=== PATIENT | male | born 1930 | race Caucasian/White ===

== ENCOUNTER 2017-10-05 11:16 | Inpatient (IN) | payer MEDICARE, MEDICAID ==
[~2017-10-05] VITALS: Ht 185.4 cm; Wt 78.1 kg
[~2017-10-05 11:16] MED LIST: ALDACTONE 25MG25 M1 PO; AMLOPIDINE; ARTIFICIAL TEAR15 M7 OU; ASPIRIN 81M81 MG/TA2 PO; ASPIRIN E.C. 8181 MG PO; CARDURA4 MG PO; CLARITIN 1010 MG/TAB PO; CRESTOR20 MG PO; CRESTOR40 MG PO; EPA/GLA1 SGL PO; FISH OIL1 POW; FLOMAX 0.40.4 MG/CAP PO; GEMFIBROZIL600 MG PO; GERI-TUSSI100 MG/5 M PO; HYDRALAZINE HC100 MG PO; HYGROTON 2525 MG/TAB PO; HYGROTON25 MG PO; IMDUR 60MG60 MG/TAB PO; IPRATROPIUM BROM3 M1 IH; LASIX 40MG TABL40 MG PO; LEVEMIR100 U/ML SQ; LIPITOR 40MG TA40 MG PO; LISINOPRIL1 POW; LISINOPRIL40 MG PO; LOPID600 MG PO; METOPROLOL TART75 MG PO; MIRALAX PA17 GM/Dose PO; MONODOX100 PO; NORVASC 10MG10 MG PO; NORVASC 5MG5 MG/TAB PO; NOVLOG SQ; PERFOROMIS20 MCG/2 M IH; PREDNISONE10 MG PO; PRINIVIL40 MG PO; PULMICORT R1 MG/2 ML IH; SIMVASTATIN80 MG PO; TYLENOL 325MG325 MG PO; TYLENOL 8 HR PO; ULTRAM 50MG TAB50 MG PO; VITAMIN E1000 U/CAP PO; ZADITOR 5 ML5 ML OP; ZOCOR 80MG80 MG PO
[2017-10-05 12:00] LABS: BASO % 0.3 % (0.0-2.0); GRAN # 1.4 (1.4-6.5); GRAN % 36.2 % (42.2-75.2); LYMPH # 1.8 (1.2-3.4); LYMPH % 45.7 % (20.0-51.0); MEAN CELL VOLUME 96 fl (80.0-100.0); MEAN CORPUSCULAR HEMOGLOBIN 32 pg (27.0-31.0); MEAN CORPUSCULAR HGB CONC 33 g/dl (33.0-37.0); MEAN PLATELET VOLUME 10.2 fl (7.4-10.4); MONO # 0.7 (0.1-0.6); MONO % 16.3 % (1.7-9.3); PLATELET COUNT 155 K/mm3 (130-400); RED BLOOD COUNT 4.06 M/mm3 (4.20-5.60); REDCELL DISTRIBUTION WIDTH-CV 12.8 % (11.5-14.5)
[2017-10-05 12:11] LABS: ALBUMIN 3.6 gm/dL (3.5-5.0); BILIRUBIN,TOTAL 0.7 mg/dL (0.0-1.0); CREATININE, serum 1.76 mg/dL (0.66-1.25); TOTAL PROTEIN 6.5 gm/dL (6.4-8.2)
[2017-10-05 12:12] LABS: POTASSIUM 4.2 mmol/L (3.4-5.0)
[2017-10-05 13:12] LABS: COLLECTION METHOD CLEAN CATCH
[2017-10-05 13:39] LABS: MUCOUS Present /lpf; PH 5 (5-8); SQUAMOUS EPITHELIAL 0-2 /hpf; URINE APPEARANCE Clear; URINE BACTERIA None Seen /hpf; URINE BILIRUBIN Negative (NEGATIVE); URINE BLOOD Negative (NEGATIVE); URINE COLOR Yellow; URINE GLUCOSE Negative (NEGATIVE); URINE KETONE Negative (NEGATIVE); URINE LEUKOCYTE ESTERASE Negative (NEGATIVE); URINE NITRATE Negative (NEGATIVE); URINE PROTEIN(semi-quant) Negative (NEGATIVE); URINE RBC 0-2 /hpf; URINE UROBILINOGEN Negative (NEGATIVE)
[2017-10-05] MEDS ORDERED: LEVAQUIN 750MG750 M1 PO ×2 (14:43)
[2017-10-05] MEDS ORDERED: MEDROL 4MG DOSPA4 MG PO (15:10)
[2017-10-05 17:00] LABS: ARTERIAL BLD GAS O2 SATURATION 88.7 % (92-100); ARTERIAL BLD GAS TCO2 CT 22.8; ARTERIAL BLOOD GAS BASE EXCESS -2.5 (-2-2); ARTERIAL BLOOD GAS HCO3 21.7 meq/L (22-26); ARTERIAL BLOOD GAS PCO2 35.5 mmHg (35-45); ARTERIAL BLOOD GAS PO2 57.1 mmHg (80-100)
[2017-10-05 19:10] VITALS: BP 132/74; PULSE 109; TEMP 97.8
[2017-10-05 20:20] VITALS: BP 153/69; PULSE 97; TEMP 98.6
[2017-10-06] VITALS (7 sets, daily range): BP systolic 105–153; BP diastolic 46–71; PULSE 87–115; TEMP 97.2–98.7
[2017-10-06 07:33] LABS: GRAN # 1.9 (1.4-6.5); GRAN % 80.4 % (42.2-75.2); LYMPH # 0.3 (1.2-3.4); LYMPH % 13.8 % (20.0-51.0); MEAN CELL VOLUME 96 fl (80.0-100.0); MEAN CORPUSCULAR HGB CONC 33 g/dl (33.0-37.0); MEAN PLATELET VOLUME 10.4 fl (7.4-10.4); MONO # 0.1 (0.1-0.6); PLATELET COUNT 147 K/mm3 (130-400); RED BLOOD COUNT 3.69 M/mm3 (4.20-5.60); REDCELL DISTRIBUTION WIDTH-CV 12.7 % (11.5-14.5)
[2017-10-06 07:34] LABS: HEMATOCRIT 35.3 % (42.0-52.0); HEMOGLOBIN 11.5 g/dl (13.5-18.0); MEAN CORPUSCULAR HEMOGLOBIN 31 pg (27.0-31.0)
[2017-10-06 08:01] LABS: CALCIUM 8.4 mg/dL (8.4-10.2); CREATININE, serum 1.39 mg/dL (0.66-1.25); MAGNESIUM 1.8 mg/dL (1.6-2.3); PHOSPHOROUS 3.5 mg/dL (2.5-4.5)
[2017-10-07 06:41] VITALS: BP 122/50; PULSE 83; TEMP 97.9
[2017-10-07 07:02] LABS: BASO % 0.2 % (0.0-2.0); GRAN # 3.7 (1.4-6.5); GRAN % 80.5 % (42.2-75.2); LYMPH # 0.4 (1.2-3.4); LYMPH % 9.3 % (20.0-51.0); MEAN CELL VOLUME 96 fl (80.0-100.0); MEAN CORPUSCULAR HGB CONC 33 g/dl (33.0-37.0); MEAN PLATELET VOLUME 10.2 fl (7.4-10.4); MONO # 0.4 (0.1-0.6); MONO % 8.9 % (1.7-9.3); PLATELET COUNT 156 K/mm3 (130-400); RED BLOOD COUNT 3.58 M/mm3 (4.20-5.60); REDCELL DISTRIBUTION WIDTH-CV 12.8 % (11.5-14.5)
[2017-10-07 07:12] LABS: HEMATOCRIT 34.5 % (42.0-52.0); HEMOGLOBIN 11.3 g/dl (13.5-18.0); MEAN CORPUSCULAR HEMOGLOBIN 32 pg (27.0-31.0)
[2017-10-07 07:22] LABS: CALCIUM 8.7 mg/dL (8.4-10.2); CREATININE, serum 1.57 mg/dL (0.66-1.25); PHOSPHOROUS 2.9 mg/dL (2.5-4.5); POTASSIUM 3.7 mmol/L (3.4-5.0)
[2017-10-07 07:52] VITALS: BP 141/62; PULSE 94; TEMP 98.1
[2017-10-07 11:45] VITALS: BP 120/71; PULSE 98; TEMP 97.7
[2017-10-07 16:09] VITALS: BP 111/63; PULSE 116; TEMP 98.6
[2017-10-07 20:17] VITALS: BP 132/65; PULSE 112; TEMP 97.4
[2017-10-08] VITALS (7 sets, daily range): BP systolic 109–142; BP diastolic 58–69; PULSE 65–109; TEMP 97.2–98.1
[2017-10-08 07:23] LABS: HEMATOCRIT 33.9 % (42.0-52.0); HEMOGLOBIN 11.2 g/dl (13.5-18.0); MEAN CELL VOLUME 98 fl (80.0-100.0); MEAN CORPUSCULAR HEMOGLOBIN 32 pg (27.0-31.0); MEAN CORPUSCULAR HGB CONC 33 g/dl (33.0-37.0); MEAN PLATELET VOLUME 10.5 fl (7.4-10.4); PLATELET COUNT 160 K/mm3 (130-400); RED BLOOD COUNT 3.47 M/mm3 (4.20-5.60); REDCELL DISTRIBUTION WIDTH-CV 13.1 % (11.5-14.5)
[2017-10-08 07:44] LABS: CALCIUM 8.8 mg/dL (8.4-10.2); CREATININE, serum 1.64 mg/dL (0.66-1.25); PHOSPHOROUS 3.3 mg/dL (2.5-4.5); POTASSIUM 4.1 mmol/L (3.4-5.0)
[2017-10-08 08:18] LABS: BAND 13 % (0-10); LYMPHOCYTE 14 % (20.0-51.0); METAMYELOCYTE 1 % (0-0); MYELOCYTE 1 % (0-0); NEUTROPHILS 65 % (42.0-75.2); PLATELET ESTIMATE NORMAL (NORMAL)
[2017-10-08 08:19] LABS: POLYCHROMASIA 1+; TOXIC GRANULATION PRESENT
[2017-10-09 04:06] VITALS: BP 118/60; PULSE 70; TEMP 98.1
[2017-10-09 06:39] LABS: MEAN CELL VOLUME 97 fl (80.0-100.0); MEAN CORPUSCULAR HGB CONC 33 g/dl (33.0-37.0); MEAN PLATELET VOLUME 10.9 fl (7.4-10.4); PLATELET COUNT 154 K/mm3 (130-400); RED BLOOD COUNT 3.43 M/mm3 (4.20-5.60); REDCELL DISTRIBUTION WIDTH-CV 12.9 % (11.5-14.5)
[2017-10-09 06:43] LABS: HEMATOCRIT 33.2 % (42.0-52.0); HEMOGLOBIN 10.8 g/dl (13.5-18.0); MEAN CORPUSCULAR HEMOGLOBIN 31 pg (27.0-31.0)
[2017-10-09 06:56] LABS: CALCIUM 8.6 mg/dL (8.4-10.2); CREATININE, serum 1.46 mg/dL (0.66-1.25); POTASSIUM 4.5 mmol/L (3.4-5.0)
[2017-10-09 07:56] VITALS: BP 131/64; PULSE 67; TEMP 97.4
[2017-10-09 08:07] LABS: BAND 4 % (0-10); LYMPHOCYTE 13 % (20.0-51.0); NEUTROPHILS 81 % (42.0-75.2)
[2017-10-09 08:10] LABS: PLATELET ESTIMATE NORMAL (NORMAL)
[2017-10-09 08:12] LABS: HYPOCHROMIA 1+
[2017-10-09 11:35] VITALS: BP 114/43; PULSE 58; TEMP 97.4
[2017-10-09 16:01] VITALS: BP 119/72; PULSE 90; TEMP 97.8
[2017-10-09 17:01] VITALS: BP 148/78; PULSE 70; TEMP 97.7
[2017-10-09 21:29] VITALS: BP 137/52; PULSE 72; TEMP 98.7
[2017-10-10 01:52] VITALS: BP 150/66; PULSE 70; TEMP 97.7
[2017-10-10 04:33] VITALS: PULSE 72
[2017-10-10 06:41] LABS: MEAN CELL VOLUME 96 fl (80.0-100.0); MEAN CORPUSCULAR HGB CONC 33 g/dl (33.0-37.0); MEAN PLATELET VOLUME 10.5 fl (7.4-10.4); PLATELET COUNT 111 K/mm3 (130-400); RED BLOOD COUNT 3.54 M/mm3 (4.20-5.60); REDCELL DISTRIBUTION WIDTH-CV 12.5 % (11.5-14.5)
[2017-10-10 06:50] VITALS: BP 137/61; PULSE 67; TEMP 97.9
[2017-10-10 06:53] LABS: CALCIUM 8.7 mg/dL (8.4-10.2); CREATININE, serum 1.17 mg/dL (0.66-1.25); POTASSIUM 4.3 mmol/L (3.4-5.0)
[2017-10-10 06:56] LABS: HEMATOCRIT 33.9 % (42.0-52.0); HEMOGLOBIN 11.2 g/dl (13.5-18.0); MEAN CORPUSCULAR HEMOGLOBIN 32 pg (27.0-31.0)
[2017-10-10 09:09] LABS: BAND 8 % (0-10); LYMPHOCYTE 12 % (20.0-51.0); NEUTROPHILS 70 % (42.0-75.2); NUCLEATED RED BLOOD CELL 2 (0-6)
[2017-10-10 09:11] LABS: PLATELET ESTIMATE NORMAL (NORMAL)
[2017-10-10 11:37] VITALS: BP 93/60; PULSE 65; TEMP 97.5
[2017-10-10 17:04] VITALS: BP 129/66; PULSE 71; TEMP 97.9
[2017-10-10 20:48] VITALS: BP 120/55; PULSE 60; TEMP 97.6
[2017-10-11 01:13] VITALS: BP 140/57; PULSE 52; TEMP 97.4
[2017-10-11 06:03] LABS: MEAN CELL VOLUME 95 fl (80.0-100.0); MEAN CORPUSCULAR HGB CONC 34 g/dl (33.0-37.0); MEAN PLATELET VOLUME 10.8 fl (7.4-10.4); PLATELET COUNT 164 K/mm3 (130-400); RED BLOOD COUNT 3.69 M/mm3 (4.20-5.60); REDCELL DISTRIBUTION WIDTH-CV 12.5 % (11.5-14.5)
[2017-10-11 06:04] LABS: HEMATOCRIT 35.1 % (42.0-52.0); HEMOGLOBIN 11.8 g/dl (13.5-18.0); MEAN CORPUSCULAR HEMOGLOBIN 32 pg (27.0-31.0)
[2017-10-11 06:29] LABS: CALCIUM 8.8 mg/dL (8.4-10.2); CREATININE, serum 1.34 mg/dL (0.66-1.25); POTASSIUM 4.3 mmol/L (3.4-5.0)
[2017-10-11 07:59] VITALS: BP 128/61; PULSE 75; TEMP 98
[2017-10-11 09:12] LABS: BAND 20 % (0-10); LYMPHOCYTE 12 % (20.0-51.0); NEUTROPHILS 67 % (42.0-75.2); PLATELET ESTIMATE NORMAL (NORMAL)
[2017-10-11 12:33] VITALS: BP 93/56; PULSE 66; TEMP 98
[2017-10-11 15:29] VITALS: BP 91/52; PULSE 69; TEMP 97.1
[2017-10-11 19:47] VITALS: BP 112/43; PULSE 60; TEMP 97.6
[2017-10-12 00:18] VITALS: BP 127/55; PULSE 56; TEMP 98.2
[2017-10-12 04:13] VITALS: BP 153/63; PULSE 56; TEMP 97.6
[2017-10-12 07:04] LABS: MEAN CELL VOLUME 95 fl (80.0-100.0); MEAN CORPUSCULAR HGB CONC 33 g/dl (33.0-37.0); PLATELET COUNT 170 K/mm3 (130-400); RED BLOOD COUNT 3.48 M/mm3 (4.20-5.60); REDCELL DISTRIBUTION WIDTH-CV 12.6 % (11.5-14.5)
[2017-10-12 07:29] LABS: HEMATOCRIT 33.2 % (42.0-52.0); HEMOGLOBIN 10.9 g/dl (13.5-18.0); MEAN CORPUSCULAR HEMOGLOBIN 31 pg (27.0-31.0)
[2017-10-12 07:46] LABS: CALCIUM 8.6 mg/dL (8.4-10.2); CREATININE, serum 1.3 mg/dL (0.66-1.25); POTASSIUM 3.6 mmol/L (3.4-5.0)
[2017-10-12 09:21] VITALS: BP 141/50; PULSE 70; TEMP 97.4
[2017-10-12] MEDS ORDERED: DOXYCYCLINE 10100 MG PO (10:08)
[2017-10-12] MEDS ORDERED: CYANOCOBAL1000 MCG/M IM (10:10)
[2017-10-12] MEDS ORDERED: FOLIC ACID 11 MG/TA1 PO (10:10)
[2017-10-12 11:11] LABS: BAND 10 % (0-10); LYMPHOCYTE 13 % (20.0-51.0); METAMYELOCYTE 3 % (0-0); NEUTROPHILS 65 % (42.0-75.2)
[2017-10-12 11:12] LABS: PLATELET ESTIMATE NORMAL (NORMAL)
[2017-10-12 11:13] LABS: TOXIC GRANULATION PRESENT
[2017-10-15 08:40] LABS: PATHOLOGY DIFF REVIEW OK
== END 2017-10-12 14:53 | DRG 191 ==
LOC: COL.ER 11:16 → MEDICAL 16:27
PROVIDERS: Emergency Medicine; Internal Medicine; Physician Assistant
DX: J44.1 Chronic obstructive pulmonary disease with (acute) exacerbation (principal); I13.0 Hypertensive heart and chronic kidney disease with heart failure and stage 1 through stage 4 chronic kidney disease, or unspecified chronic kidney disease; I50.32 Chronic diastolic (congestive) heart failure; Z94.0 Kidney transplant status; N17.9 Acute kidney failure, unspecified; E87.1 Hypo-osmolality and hyponatremia; N18.9 Chronic kidney disease, unspecified; E11.22 Type 2 diabetes mellitus with diabetic chronic kidney disease; Z87.891 Personal history of nicotine dependence; Z79.4 Long term (current) use of insulin; D64.9 Anemia, unspecified
CPT/HCPCS: 99222-AI; 99223-AI; 99232-AI; 99233-AI; 99239; A9539; A9540; G0378; G8978-GP; G8979-GP; G8980-GP; G8987-GO; G8988-GO; G8996-GN; G8997-GN; J1644; J1815; J1940; J2920; J3420; J7030; J7512

== ENCOUNTER 2018-06-22 10:03 | Emergency (ER) | payer MEDICARE, MEDICAID ==
[~2018-06-22] VITALS: Ht 182.9 cm; Wt 72.7 kg
[~2018-06-22 10:03] MED LIST changes: +CYANOCOBAL1000 MCG/M IM; +DOXYCYCLINE 10100 MG PO; +FOLIC ACID 11 MG/TA1 PO; +LEVAQUIN 750MG750 M1 PO; +MEDROL 4MG DOSPA4 MG PO
[2018-06-22 10:08] VITALS: TEMP 98.7
[2018-06-22] MEDS ORDERED: NORVASC 5MG5 MG/TAB PO (10:30)
[2018-06-22] MEDS ORDERED: LIQUIFILM TEARS15 ML OU (10:31)
[2018-06-22] MEDS ORDERED: LIPITOR 40MG TA40 MG PO (10:32)
[2018-06-22] MEDS ORDERED: ASPIRIN E.C. 8181 MG PO (10:32)
[2018-06-22] MEDS ORDERED: PERFOROMIS20 MCG/2 M IH (10:33)
[2018-06-22] MEDS ORDERED: VITAMIN B-1000 MCG/T PO (10:34)
[2018-06-22] MEDS ORDERED: CLARITIN 1010 MG/TAB PO (10:34)
[2018-06-22] MEDS ORDERED: FOLIC ACID 11 MG/TA1 PO (10:35)
[2018-06-22] MEDS ORDERED: LASIX 40MG TABL40 MG PO (10:35)
[2018-06-22] MEDS ORDERED: ROBITUSSIN100 MG/5 M PO (10:36)
[2018-06-22] MEDS ORDERED: ATROVENT I0.2 MG/1 M IH (10:37)
[2018-06-22] MEDS ORDERED: IMDUR 30MG30 MG/TAB PO (10:38)
[2018-06-22] MEDS ORDERED: LEVEMIR100 U/ML SQ (10:38)
[2018-06-22] MEDS ORDERED: PRINIVIL40 MG PO (10:39)
[2018-06-22] MEDS ORDERED: METOPROLOL TART75 MG PO (10:40)
[2018-06-22] MEDS ORDERED: MIRALAX PA17 GM/Dose PO (10:41)
[2018-06-22] MEDS ORDERED: FLOMAX 0.40.4 MG/CAP PO (10:43)
[2018-06-22] MEDS ORDERED: NOVOLIN R100 U/ML (10:43)
[2018-06-22] MEDS ORDERED: ULTRAM 50MG TAB50 MG PO (10:44)
[2018-06-22] MEDS ORDERED: ZADITOR 5 ML5 ML OP (10:45)
[2018-06-22 11:51] LABS: BASO % 0.4 % (0.0-2.0); EOS # 0.1 (0.0-0.7); EOS % 1.3 % (0-4.0); GRAN # 4.9 (1.4-6.5); GRAN % 65.7 % (42.2-75.2); HEMATOCRIT 37.5 % (42.0-52.0); LYMPH # 1.7 (1.2-3.4); LYMPH % 22.5 % (20.0-51.0); MEAN CELL VOLUME 103 fl (80.0-100.0); MEAN CORPUSCULAR HEMOGLOBIN 33 pg (27.0-31.0); MEAN CORPUSCULAR HGB CONC 32 g/dl (33.0-37.0); MONO # 0.7 (0.1-0.6); MONO % 9.7 % (1.7-9.3); PLATELET COUNT 164 K/mm3 (130-400); RED BLOOD COUNT 3.66 M/mm3 (4.20-5.60); REDCELL DISTRIBUTION WIDTH-CV 12.7 % (11.5-14.5)
[2018-06-22 11:58] LABS: ALBUMIN 3.4 gm/dL (3.5-5.0); BILIRUBIN,TOTAL 0.4 mg/dL (0.0-1.0); CALCIUM 8.9 mg/dL (8.4-10.2); CREATININE, serum 1.26 mg/dL (0.66-1.25); POTASSIUM 3.8 mmol/L (3.4-5.0); TOTAL PROTEIN 6.2 gm/dL (6.4-8.2)
[2018-06-22] MEDS ORDERED: PREDNISONE20 MG PO (12:51)
[2018-06-22 13:55] VITALS: BP 179/92; PULSE 65
== END 2018-06-22 13:55 | disposition home or self-care (01) ==
LOC: COL.ER 10:03
PROVIDERS: Physician Assistant Medical
DX: R06.02 Shortness of breath (principal); E78.5 Hyperlipidemia, unspecified; I13.0 Hypertensive heart and chronic kidney disease with heart failure and stage 1 through stage 4 chronic kidney disease, or unspecified chronic kidney disease; E11.22 Type 2 diabetes mellitus with diabetic chronic kidney disease; N18.9 Chronic kidney disease, unspecified; I50.9 Heart failure, unspecified; Z79.82 Long term (current) use of aspirin; Z79.4 Long term (current) use of insulin; F17.210 Nicotine dependence, cigarettes, uncomplicated

== ENCOUNTER 2018-08-25 10:58 | Inpatient (IN) | payer MEDICARE, MEDICAID ==
[~2018-08-25] VITALS: Ht 172.7 cm; Wt 86.8 kg
[~2018-08-25 10:58] MED LIST changes: +ATROVENT I0.2 MG/1 M IH; +IMDUR 30MG30 MG/TAB PO; +LIQUIFILM TEARS15 ML OU; +NOVOLIN R100 U/ML; +PREDNISONE20 MG PO; +ROBITUSSIN100 MG/5 M PO; +VITAMIN B-1000 MCG/T PO
[2018-08-25 11:29] LABS: BASO % 0.2 % (0.0-2.0); EOS % 0.5 % (0-4.0); GRAN # 4.5 (1.4-6.5); GRAN % 71.8 % (42.2-75.2); HEMATOCRIT 40.8 % (42.0-52.0); HEMOGLOBIN 12.8 g/dl (13.5-18.0); LYMPH % 15.9 % (20.0-51.0); MEAN CELL VOLUME 100 fl (80.0-100.0); MEAN CORPUSCULAR HEMOGLOBIN 31 pg (27.0-31.0); MEAN CORPUSCULAR HGB CONC 31 g/dl (33.0-37.0); MEAN PLATELET VOLUME 11.5 fl (7.4-10.4); MONO # 0.7 (0.1-0.6); MONO % 11.1 % (1.7-9.3); PLATELET COUNT 135 K/mm3 (130-400); RED BLOOD COUNT 4.08 M/mm3 (4.20-5.60)
[2018-08-25 11:33] LABS: PROTHROMBIN TIME 11.1 SECONDS (9.7-12.8)
[2018-08-25 11:42] LABS: ALANINE AMINOTRANSFERASE 32 U/L (21-72); ALBUMIN 3.7 gm/dL (3.5-5.0); ALKALINE PHOSPHATASE 68 U/L (50-136); AST,SGOT 25 U/L (15-37); BILIRUBIN,TOTAL 0.6 mg/dL (0.0-1.0); BLOOD UREA NITROGEN 26 mg/dL (9-20); CALCIUM 9.1 mg/dL (8.4-10.2); CHLORIDE 96 mmol/L (98-107); CREATININE, serum 1.09 mg/dL (0.66-1.25); GLUCOSE 128 mg/dL (74-106); LIPASE 117 U/L (23-300); POTASSIUM 4.2 mmol/L (3.4-5.0); SODIUM 145 mmol/L (137-145); TOTAL PROTEIN 6.5 gm/dL (6.4-8.2)
[2018-08-25 11:56] LABS: ANION GAP 0 mmol/L (7-16); CARBON DIOXIDE 49 mmol/L (22-30); TROPONIN-I < 0.012 ng/mL (0.000-0.034)
[2018-08-25 16:08] VITALS: BP 164/71; PULSE 53; TEMP 98.4
[2018-08-25] MEDS ORDERED: TYLENOL 325MG325 MG PO (16:20)
[2018-08-25] MEDS ORDERED: PULMICORT R1 MG/2 ML IH (16:21)
[2018-08-25] MEDS ORDERED: CATAPRES 0.1MG0.1 MG PO (16:23)
[2018-08-25 16:52] LABS: ARTERIAL BLD GAS O2 SATURATION 96.6 % (92-100); ARTERIAL BLD GAS TCO2 CT 40.7; ARTERIAL BLOOD GAS BASE EXCESS 11.1 (-2-2); ARTERIAL BLOOD GAS HCO3 38.6 meq/L (22-26); ARTERIAL BLOOD GAS PO2 92.3 mmHg (80-100); ARTERIAL BLOOD GAS pH 7.39 (7.35-7.45)
[2018-08-25 16:53] LABS: ARTERIAL BLOOD GAS PCO2 65.9 mmHg (35-45)
[2018-08-25 18:16] LABS: TROPONIN-I 6 HR POST INITIAL < 0.012 ng/mL (0.000-0.034)
[2018-08-25 20:54] VITALS: BP 174/59; PULSE 53; TEMP 98.3
[2018-08-26 00:18] VITALS: BP 184/68; PULSE 31; TEMP 97.6
[2018-08-26 04:36] VITALS: BP 128/63; PULSE 52; TEMP 97.6
[2018-08-26 07:37] VITALS: BP 129/77; PULSE 77; TEMP 98.3
[2018-08-26 09:22] LABS: EOS % 0.4 % (0-4.0); GRAN # 2.6 (1.4-6.5); GRAN % 57.3 % (42.2-75.2); HEMOGLOBIN 11.7 g/dl (13.5-18.0); LYMPH # 1.1 (1.2-3.4); LYMPH % 24.7 % (20.0-51.0); MEAN CELL VOLUME 98 fl (80.0-100.0); MEAN CORPUSCULAR HEMOGLOBIN 31 pg (27.0-31.0); MEAN CORPUSCULAR HGB CONC 32 g/dl (33.0-37.0); MEAN PLATELET VOLUME 11.7 fl (7.4-10.4); MONO # 0.8 (0.1-0.6); MONO % 17.2 % (1.7-9.3); PLATELET COUNT 136 K/mm3 (130-400); RED BLOOD COUNT 3.76 M/mm3 (4.20-5.60); REDCELL DISTRIBUTION WIDTH-CV 12.1 % (11.5-14.5)
[2018-08-26 09:29] LABS: HEMATOCRIT 36.9 % (42.0-52.0)
[2018-08-26 09:38] LABS: CALCIUM 8.9 mg/dL (8.4-10.2)
[2018-08-26] MEDS ORDERED: ULTRAM 50MG TAB50 MG PO (11:19)
[2018-08-26 11:56] VITALS: BP 104/52; PULSE 76; TEMP 98.6
== END 2018-08-26 14:48 | DRG 392 ==
LOC: COL.ER 10:58 → MEDICAL 12:52
PROVIDERS: Emergency Medicine; Internal Medicine
DX: R10.11 Right upper quadrant pain (principal); I50.32 Chronic diastolic (congestive) heart failure; E87.4 Mixed disorder of acid-base balance; J96.12 Chronic respiratory failure with hypercapnia; R07.89 Other chest pain; I11.0 Hypertensive heart disease with heart failure; E78.5 Hyperlipidemia, unspecified; J44.9 Chronic obstructive pulmonary disease, unspecified; Z87.891 Personal history of nicotine dependence; E11.9 Type 2 diabetes mellitus without complications; Z91.19 Patient's noncompliance with other medical treatment and regimen
CPT/HCPCS: 99222-AI; 99232-AI; J1815; Q9967

== ENCOUNTER → 2018-11-12 | Outpatient (CLI) | payer MEDICARE, MEDICAID ==
[~2018-11-12] MED LIST changes: +B-12 500 MCG PO; +CATAPRES 0.1MG0.1 MG PO; +CEFTIN500 MG PO; +NEILMED SINUS R1 PKT; -NOVOLIN R100 U/ML; +NOVOLOG 100U100 U/M1 SQ; +PREDNISONE 5MG5 MG PO; +SALINE 45 ML45 ML NS; -VITAMIN B-1000 MCG/T PO
== END ==
LOC: COL.RAD 12:50
DX: J96.12 Chronic respiratory failure with hypercapnia (principal); J18.1 Lobar pneumonia, unspecified organism; J98.6 Disorders of diaphragm; M19.011 Primary osteoarthritis, right shoulder; M19.012 Primary osteoarthritis, left shoulder; M46.96 Unspecified inflammatory spondylopathy, lumbar region; K80.20 Calculus of gallbladder without cholecystitis without obstruction

== ENCOUNTER 2019-01-03 08:26 | Day surgery (SDC) | payer MEDICARE, MEDICAID, OTHER ==
[~2019-01-03] VITALS: Ht 172.7 cm; Wt 92.0 kg
[2019-01-03] MEDS ORDERED: BROVANA15 MCG/2 M IH (08:58)
[2019-01-03] MEDS ORDERED: NOVOLOG 100U100 U/M1 SQ (09:07)
[2019-01-03] MEDS ORDERED: PREDNISONE 5MG5 MG PO (09:08)
[2019-01-03 09:18] VITALS: BP 125/61; PULSE 69; TEMP 97.7
[2019-01-03 09:34] VITALS: BP 101/53; PULSE 69; TEMP 97.6
--- NOTE | 2019-01-03 09:34 | NUR ---
Patient brought back to [facility]. Remains on cart at this time. Alert and oritented. Vital signs obtained WNL. Continues on oxygen at 2L via NC. Requesting water at this time. Several sips given, some coughing noted. Will continue to monitor.
[2019-01-03 09:49] VITALS: BP 104/56; PULSE 65
--- NOTE | 2019-01-03 09:49 | NUR ---
Patient requesting applesauce at this time. Tolerating food and drink without difficutly. States he is feeling good. Vital signs WNL will continue to monitor.
[2019-01-03 10:04] VITALS: BP 109/64; PULSE 62
--- NOTE | 2019-01-03 10:04 | NUR ---
Report given to [facility] RN Kindra. All questions answered. States transportation will be there in 30minutes to pick patient up. Tolerating food and drink well. Vital signs stable. Will contiue to monitor.
--- NOTE | 2019-01-03 10:20 | NUR ---
Patient discharge instructions reviewed with patient. All questions answered. IV removed per MD orders. Patient helped get dressed. Transfered to personal wheel chair. Connected to personal O2. Awaiting transportation to pick him up.
--- NOTE | 2019-01-03 10:55 | NUR ---
Patient brought down to lobby. Being driven home by long-term staff. Discharge paperwork on back of wheel chair. Communicated to staff.
[2019-01-03 14:34] VITALS: BP 106/83; PULSE 72
== END 2019-01-03 10:55 | disposition home or self-care (01) ==
LOC: SDCO 08:26
DX: K22.2 Esophageal obstruction (principal); E11.9 Type 2 diabetes mellitus without complications; E78.00 Pure hypercholesterolemia, unspecified; K59.00 Constipation, unspecified; I11.0 Hypertensive heart disease with heart failure; I50.9 Heart failure, unspecified; J44.9 Chronic obstructive pulmonary disease, unspecified; G89.29 Other chronic pain; N40.0 Benign prostatic hyperplasia without lower urinary tract symptoms; M19.90 Unspecified osteoarthritis, unspecified site; Z79.4 Long term (current) use of insulin; Z79.82 Long term (current) use of aspirin; Z79.52 Long term (current) use of systemic steroids; Z87.891 Personal history of nicotine dependence
CPT/HCPCS: C1726; J2704; J7030

== ENCOUNTER → 2019-05-26 | Outpatient (CLI) | payer MEDICARE, MEDICAID ==
[~2019-05-26] MED LIST changes: +BROVANA15 MCG/2 M IH
[2019-05-26 07:52] LABS: ARTERIAL BLD GAS O2 SATURATION 93.8 % (92-100); ARTERIAL BLD GAS TCO2 CT 37.5; ARTERIAL BLOOD GAS BASE EXCESS 8.9 (-2-2); ARTERIAL BLOOD GAS HCO3 35.7 meq/L (22-26); ARTERIAL BLOOD GAS PCO2 59.1 mmHg (35-45)
--- NOTE | 2019-05-26 08:08 | NUR ---
PATIENT ARRIVES IN A WHEELCHAIR AND IS UNABLE TO GET INTO PFT BOX. PATIENT IS HARD OF HEARING AND DOES NOT FOLLOW DIRECTION WELL. ATTEMPTED TO DO DLCO OUT OF BOX PROTOCOL, HOWEVER, PATIENT WAS UNABLE TO FOLLOW DIRECTION, THEREFORE PRE AND POST SPIROMETRY COMPLETED. BHANU MANJARREZ, DIRECTOR FINANCIAL SYSTEMS
== END ==
LOC: COL.PUL 07:32 → COL.RAD 13:00
PROVIDERS: Internal Medicine Pulmonary Disease
DX: J44.9 Chronic obstructive pulmonary disease, unspecified (principal); Z87.891 Personal history of nicotine dependence

== ENCOUNTER 2019-07-18 04:28 | Emergency (ER) | payer MEDICARE, MEDICAID ==
[~2019-07-18] VITALS: Ht 182.9 cm; Wt 90.9 kg
[2019-07-18 04:54] LABS: HEMOGLOBIN 11.2 g/dl (13.5-18.0); MEAN CELL VOLUME 101 fl (80.0-100.0); MEAN CORPUSCULAR HEMOGLOBIN 31 pg (27.0-31.0); MEAN CORPUSCULAR HGB CONC 31 g/dl (33.0-37.0); MEAN PLATELET VOLUME 11.3 fl (7.4-10.4); PLATELET COUNT 163 K/mm3 (130-400)
[2019-07-18 04:55] LABS: PROTHROMBIN TIME 11.3 SECONDS (9.7-12.8)
[2019-07-18 04:59] LABS: ALBUMIN 3.4 gm/dL (3.5-5.0); BILIRUBIN,TOTAL 0.7 mg/dL (0.0-1.0); CALCIUM 8.8 mg/dL (8.4-10.2); CREATININE, serum 1.36 (0.66-1.25); HEMATOCRIT 36.2 % (42.0-52.0); TOTAL PROTEIN 6.1 gm/dL (6.4-8.2)
[2019-07-18 05:11] LABS: TROPONIN-I 0.015 ng/mL (0.000-0.035)
[2019-07-18 05:24] LABS: ARTERIAL BLD GAS O2 SATURATION 96.2 % (92-100); ARTERIAL BLD GAS TCO2 CT 42.4; ARTERIAL BLOOD GAS HCO3 40.2 meq/L (22-26); ARTERIAL BLOOD GAS PO2 87.3 mmHg (80-100); ARTERIAL BLOOD GAS pH 7.36 (7.35-7.45)
[2019-07-18 05:25] LABS: ARTERIAL BLOOD GAS PCO2 72.9 mmHg (35-45)
[2019-07-18] MEDS ORDERED: LIQUIFILM TEARS15 ML OU (05:59)
[2019-07-18] MEDS ORDERED: DULCOLAX S10 MG/SUPP RC (06:02)
[2019-07-18 06:15] LABS: EOSINOPHIL 1 % (0-4); LYMPHOCYTE 19 % (20.0-51.0); NEUTROPHILS 70 % (42.0-75.2)
[2019-07-18 06:16] LABS: HYPOCHROMIA 2+; PLATELET ESTIMATE NORMAL (NORMAL); STOMATOCYTE 1+
[2019-07-18] MEDS ORDERED: CLARITIN 1010 MG/TAB PO (06:22)
[2019-07-18 06:59] LABS: ARTERIAL BLD GAS O2 SATURATION 95.6 % (92-100); ARTERIAL BLD GAS TCO2 CT 39.4; ARTERIAL BLOOD GAS HCO3 37.2 meq/L (22-26); ARTERIAL BLOOD GAS pH 7.34 (7.35-7.45)
[2019-07-18 07:00] LABS: ARTERIAL BLOOD GAS PCO2 71.4 mmHg (35-45)
[2019-07-18] MEDS ORDERED: MAXITROL OPHTH3.5 GM OU (07:44)
[2019-07-18] MEDS ORDERED: METOPROLOL TART75 MG PO (07:45)
[2019-07-18] MEDS ORDERED: NOVOLOG 100U100 U/M1 SQ (07:49)
[2019-07-18] MEDS ORDERED: FLOMAX 0.40.4 MG/CAP PO (07:51)
[2019-07-18] MEDS ORDERED: ULTRAM 50MG TAB50 MG PO (07:52)
[2019-07-18 11:20] VITALS: TEMP 98.1
[2019-07-18 12:40] VITALS: BP 157/77; PULSE 63
== END 2019-07-18 12:57 | disposition short-term general hospital (02) ==
LOC: COL.ER 04:28
PROVIDERS: Emergency Medicine
DX: J44.1 Chronic obstructive pulmonary disease with (acute) exacerbation (principal); R06.89 Other abnormalities of breathing; E78.5 Hyperlipidemia, unspecified; E11.9 Type 2 diabetes mellitus without complications; I11.0 Hypertensive heart disease with heart failure; I50.9 Heart failure, unspecified; Z79.4 Long term (current) use of insulin; Z79.82 Long term (current) use of aspirin
CPT/HCPCS: J2543; J2930; J7030

== ENCOUNTER 2019-07-31 12:39 | Inpatient (IN) | payer MEDICARE, MEDICAID ==
[~2019-07-31] VITALS: Ht 182.9 cm; Wt 87.2 kg
[~2019-07-31 12:39] MED LIST changes: +DULCOLAX S10 MG/SUPP RC; +MAXITROL OPHTH3.5 GM OU
[2019-07-31 13:12] LABS: HEMATOCRIT 41.6 % (42.0-52.0); MEAN CELL VOLUME 102 fl (80.0-100.0); MEAN CORPUSCULAR HEMOGLOBIN 32 pg (27.0-31.0); MEAN CORPUSCULAR HGB CONC 31 g/dl (33.0-37.0); MEAN PLATELET VOLUME 11.7 fl (7.4-10.4); PLATELET COUNT 187 K/mm3 (130-400); REDCELL DISTRIBUTION WIDTH-CV 13.2 % (11.5-14.5)
[2019-07-31 13:17] LABS: INR 0.9 (0.8-3.0); PROTHROMBIN TIME 10.7 SECONDS (9.7-12.8)
[2019-07-31 13:23] LABS: ALBUMIN 3.4 gm/dL (3.5-5.0); BILIRUBIN,TOTAL 0.6 mg/dL (0.0-1.0); CALCIUM 9.1 mg/dL (8.4-10.2); CREATININE, serum 1.7 (0.66-1.25); POTASSIUM 4.3 mmol/L (3.4-5.0); TOTAL PROTEIN 6.1 gm/dL (6.4-8.2)
[2019-07-31 13:30] LABS: BAND 14 % (0-10); LYMPHOCYTE 4 % (20.0-51.0); NEUTROPHILS 79 % (42.0-75.2)
[2019-07-31 13:31] LABS: PLATELET ESTIMATE NORMAL (NORMAL)
[2019-07-31 13:31] LABS: ARTERIAL BLD GAS O2 SATURATION 90.8 % (92-100); ARTERIAL BLD GAS TCO2 CT 37.6; ARTERIAL BLOOD GAS BASE EXCESS 7.5 (-2-2); ARTERIAL BLOOD GAS HCO3 35.6 meq/L (22-26); ARTERIAL BLOOD GAS PO2 62.2 mmHg (80-100); ARTERIAL BLOOD GAS pH 7.34 (7.35-7.45)
[2019-07-31 13:32] LABS: STOMATOCYTE 1+
[2019-07-31 13:32] LABS: ARTERIAL BLOOD GAS PCO2 67.3 mmHg (35-45)
[2019-07-31 17:32] VITALS: BP 113/69; PULSE 101; TEMP 98
[2019-07-31 17:39] VITALS: BP 113/69; PULSE 64; TEMP 98
[2019-07-31] MEDS ORDERED: NORVASC 10MG10 MG PO (17:47)
[2019-07-31] MEDS ORDERED: HUMULIN N PE100 U/ML SQ (18:04)
[2019-07-31] MEDS ORDERED: 00186-0370-20 IH (18:05)
--- NOTE | 2019-07-31 19:33 | NUR ---
Pt 5 page, med rec, allergies and pharmacy completed. Physician in to visit with patient. Pt A&O. LS coarse and exp wheezing throughout. Heart RRR, radial pulses strong bilaterally. Pt denies chest pain, dizziness, N/V/D. Pt on 3L Oxymask, additional nursing order for pt to be on bipap if not eating. RLE edema 3+, LLE edema 2+ noted, pulses 1+. BS audible X4. Pt on droplet pending RVP results. RH INT IV flushes w/o complications. No other concerns noted. Report given to YARIEL Esparza.
--- NOTE | 2019-07-31 19:41 | NUR ---
Sitting up in bed with eyes open. Respiratory in room applying Bipap. Patient get short of air and labored breathing with activity and talking. Denies pain. 2+ bilat LE edmea noted, greater in the right than the left. Patient denies needs at this time.
[2019-07-31 19:46] VITALS: BP 114/67; PULSE 60; TEMP 97.6
[2019-07-31 20:42] LABS: ARTERIAL BLD GAS O2 SATURATION 94.6 % (92-100); ARTERIAL BLD GAS TCO2 CT 43.1; ARTERIAL BLOOD GAS HCO3 40.8 meq/L (22-26); ARTERIAL BLOOD GAS PO2 73.7 mmHg (80-100); ARTERIAL BLOOD GAS pH 7.36 (7.35-7.45)
[2019-07-31 20:44] LABS: ARTERIAL BLOOD GAS PCO2 74.4 mmHg (35-45)
--- NOTE | 2019-07-31 21:23 | NUR ---
Increased IPAP to 18 and rate on BIPAP to 20 due to high PCO2 at 2100. Will repeat ABG at 2300 per Alistair LOPEZ.
[2019-07-31 22:48] LABS: ARTERIAL BLD GAS O2 SATURATION 96.5 % (92-100); ARTERIAL BLD GAS TCO2 CT 37.1; ARTERIAL BLOOD GAS BASE EXCESS 7.7 (-2-2); ARTERIAL BLOOD GAS HCO3 35.2 meq/L (22-26); ARTERIAL BLOOD GAS PCO2 62.6 mmHg (35-45); ARTERIAL BLOOD GAS PO2 91.6 mmHg (80-100); ARTERIAL BLOOD GAS pH 7.37 (7.35-7.45)
[2019-07-31 23:30] VITALS: BP 111/58; PULSE 61; TEMP 97.3
--- NOTE | 2019-07-31 23:37 | NUR ---
Lopressor held due to BP low, 111/58. Patient with eyes closed, harder to wake at this time. Removed covers and patient begins to wake up more. Patient able to groan out and tries to pull arms back. Continues use of Bipap. Will continue to monitor patient.
[2019-08-01] VITALS (917 sets, daily range): BP systolic 114–137; BP diastolic 59–74; PULSE 58–80; TEMP 97.3–99.5; O2SAT 64–100
--- NOTE | 2019-08-01 | NUR ---
Difficulty to get patient awake and alert. BP 69/42, repeat BP 79/39. Patient remains on Bipap. Contacted Ms. Gaby Sainz, hospitalist, guillermo she arrives to room to assess patient. NS started at 999mL/hr at this time. Repeat ABG drawn and lab notified to draw additional labs at this time. ICU contacted and telemetry showing sinus dysrhythmia. EKG performed. Staff remains in room with the patient. Continue to have difficulty getting patient awake and alert.
--- NOTE | 2019-08-01 00:07 | NUR ---
Repeat BP 105/50. IV fluids discontinued per Ms. Sainz order, total NS infused was 85mL. Continue to have difficulty getting patient awake and alert. Ms. Sainz would like Bipap removed to see if that awakens patient more.
[2019-08-01 00:15] LABS: ARTERIAL BLD GAS O2 SATURATION 96.4 % (92-100); ARTERIAL BLD GAS TCO2 CT 40.4; ARTERIAL BLOOD GAS BASE EXCESS 10.5 (-2-2); ARTERIAL BLOOD GAS HCO3 38.3 meq/L (22-26); ARTERIAL BLOOD GAS PO2 88.7 mmHg (80-100); ARTERIAL BLOOD GAS pH 7.37 (7.35-7.45)
[2019-08-01 00:16] LABS: ARTERIAL BLOOD GAS PCO2 67.6 mmHg (35-45)
--- NOTE | 2019-08-01 00:21 | NUR ---
Patient more alert at this time. BP 138/64, pulse 64, and SpO2 97%. Patient able to tell Ms. Sainz his name, month, year, and who the president is. Continues to have sinus dysrhythmia according to telemetry. Patient drinks some water and immediately begins to cough after swallowing.
[2019-08-01 00:31] LABS: BASO % 0.1 % (0.0-2.0); GRAN # 24.4 (1.4-6.5); GRAN % 94.4 % (42.2-75.2); HEMATOCRIT 38.2 % (42.0-52.0); HEMOGLOBIN 12.1 g/dl (13.5-18.0); LYMPH # 0.7 (1.2-3.4); LYMPH % 2.7 % (20.0-51.0); MEAN CELL VOLUME 101 fl (80.0-100.0); MEAN CORPUSCULAR HEMOGLOBIN 32 pg (27.0-31.0); MEAN CORPUSCULAR HGB CONC 32 g/dl (33.0-37.0); MEAN PLATELET VOLUME 11.9 fl (7.4-10.4); MONO # 0.4 (0.1-0.6); MONO % 1.7 % (1.7-9.3); PLATELET COUNT 158 K/mm3 (130-400); RED BLOOD COUNT 3.79 M/mm3 (4.20-5.60); REDCELL DISTRIBUTION WIDTH-CV 13.3 % (11.5-14.5)
--- NOTE | 2019-08-01 00:34 | NUR ---
Contacted Za, nurse in ICU, to provide patient transfer report.
--- NOTE | 2019-08-01 00:39 | NUR ---
BP 128/52, pulse 56. Patient continues to remain alert. Denies any pain or discomforts. On Oxy mask at 3L. Transfer patient to ICU at this time via bed with portable oxygen.
--- NOTE | 2019-08-01 00:43 | NUR ---
Report received from YARIEL Esparza at 0030. Patient arrived at 0043 via bed. Transferred to ICU bed with full assist of 4 staff members. Patient denies any pain or discomfort. Wet cough noted, patient states he does get phlegm up at times. Monitoring equipement in place, see vital sign flow sheet. Patient oriented to room and encouraged to use call light for assistance.
[2019-08-01 00:46] LABS: CALCIUM 8.8 mg/dL (8.4-10.2); CREATININE, serum 2.03 (0.66-1.25); POTASSIUM 4.6 mmol/L (3.4-5.0)
--- NOTE | 2019-08-01 01:26 | NUR ---
Contacted emergency contact Augusto Alla, patient brother. Explained patient was trasnferred to the ICU and explained situation and current status of the patient. Augusto verbalizes understanding and denies further questions or concerns at this time.
--- NOTE | 2019-08-01 02:08 | NUR ---
Patient oxygen titrted to 3 lpm via oxymask-tolerating well, SpO2 at 97%, will continue to monitor, patient resting comfortable, wet cough noted.
--- NOTE | 2019-08-01 02:38 | NUR ---
Oxygen titrated down to 2 LPM via oxymask, patient tolerating well, SpO2 at 95%. Patient having bradycardic episodes, still arousable with intact neuro checks. ANA Camacho at bedside at this time.
[2019-08-01 03:15] LABS: ARTERIAL BLD GAS O2 SATURATION 91.7 % (92-100); ARTERIAL BLD GAS TCO2 CT 39.5; ARTERIAL BLOOD GAS HCO3 37.4 meq/L (22-26); ARTERIAL BLOOD GAS PO2 65.9 mmHg (80-100); ARTERIAL BLOOD GAS pH 7.34 (7.35-7.45)
[2019-08-01 03:16] LABS: ARTERIAL BLOOD GAS PCO2 70.2 mmHg (35-45)
--- NOTE | 2019-08-01 04:34 | NUR ---
Patient resting in bed with eyes closed, BIPAP in place-patient tolerating well. Heart rate still having bradycardic episodes but patient denies any pain or discomfort. Encouraged to use call light for assistance.
[2019-08-01 06:10] LABS: ARTERIAL BLD GAS O2 SATURATION 97.8 % (92-100); ARTERIAL BLD GAS TCO2 CT 41.6; ARTERIAL BLOOD GAS HCO3 39.4 meq/L (22-26); ARTERIAL BLOOD GAS PO2 103.2 mmHg (80-100); ARTERIAL BLOOD GAS pH 7.36 (7.35-7.45)
[2019-08-01 06:11] LABS: ARTERIAL BLOOD GAS PCO2 71.5 mmHg (35-45)
--- NOTE | 2019-08-01 07:10 | NUR ---
SWALLOW STUDY FAILED ORDER FOR RADIOLOGY SWALLOW STUDY NEXT
--- NOTE | 2019-08-01 07:27 | NUR ---
Bedside report given to YARIEL Wheeler and YARIEL Benitez. Care transferred at this time.
--- NOTE | 2019-08-01 08:00 | NUR ---
PATIENT NOTIFIES STAFF OF NEEDING URINAL. PATIENT VOIDS 100 CC INTO URINAL. COLLECTED AND SENT TO LAB
[2019-08-01 09:32] LABS: COLLECTION METHOD CLEAN CATCH
--- NOTE | 2019-08-01 09:36 | NUR ---
Vancomycin Initial Dosing Pharmacy Note Ordering provider: MARK Indication/duration: EMPIRIC, POSSIBLE PNA Relevant comorbidities: LABS: WBC 25.8, SCr 2, CrCl ~20 Recommendation: VANCOMYCIN DOSED BY LEVELS Loading dose: 1.5 grams Maintenance dose: TO BE DETERMINED BASED ON LEVELS Trough goal: 15-20 ug/mL. [facility] TROUGH 08/02 @ 6634
[2019-08-01 09:41] LABS: MUCOUS Present /lpf; PH 7 (5-8); SQUAMOUS EPITHELIAL 0-2 /hpf; URINE APPEARANCE Clear; URINE BACTERIA None Seen /hpf; URINE BILIRUBIN Negative (NEGATIVE); URINE BLOOD Negative (NEGATIVE); URINE COLOR Straw; URINE GLUCOSE Negative (NEGATIVE); URINE KETONE Negative (NEGATIVE); URINE LEUKOCYTE ESTERASE Negative (NEGATIVE); URINE NITRATE Negative (NEGATIVE); URINE PROTEIN(semi-quant) Negative (NEGATIVE); URINE RBC 0-2 /hpf; URINE UROBILINOGEN Negative (NEGATIVE); URINE WBC 0-2 /hpf
--- NOTE | 2019-08-01 11:00 | NUR ---
SWALLOW STUDY PERFORMED PATIENT HAS PASSED, ORDERED SOFT AHA DIET,
--- NOTE | 2019-08-01 12:20 | NUR ---
CBS 349, PATIENT NEEDS ONE PERSON TO FEED, ARMS ARE WEAK. PATIENT IS BEING FED BY STAFF, SOFT DIET FROM KITCHEN
--- NOTE | 2019-08-01 13:22 | NUR ---
Battery Filler met with patient to discuss discharge planning. Patient lives at [facility] and reports he has been there about three years. Patient states he is agreeable to return there upon discharge. Patient is unsure who his primary care physician is because he states it keeps changing. Patient reports he uses a wheelchair. Patient's DPOA-HC is his brother, Augusto. SW contacted Augusto (ph#[phone]) to discuss discharge planning. Augusto states the plan is for patient to return to [facility]. YESSY reviewed patient choice form and Augusto provided verbal consent over the phone. YESSY placed choice form in chart. YESSY contacted [facility] and faxed referral. SW to continue to follow.
--- NOTE | 2019-08-01 18:33 | NUR ---
STAFF FEEDS PATIENT, PATIENT CANNOT KEEP HANDS UP TO MOUTH.
--- NOTE | 2019-08-01 18:52 | NUR ---
REPORT TO NURSE CABRERA
--- NOTE | 2019-08-01 18:55 | NUR ---
Report received from Liam SALDIVAR. Pt resting in bed with RT at bedside for breathing treatment. Pt has the television on and denies any current wants or needs.
--- NOTE | 2019-08-01 21:00 | NUR ---
During administration of PO medications pt as encouraged to take a sip of water prior to medications. When pt took the sip of water pt demonstrated signs of choking. Face turned red and no visual breaths were noted. When the pt was asked if he was having troubles breathing pt shoot head up and down, consistent with a yes. Suction was hooked up at bedside and was utilized inside the pts mouth. After a couple of coughs pt was noted to be breathing and face returned to baseline color. After a few moments, and pts HOB elevated to almost a 90 degree angle, from a 45 degree angle at first sip, pts second sip of water was swallowed with no noted difficulty from pt as well as medications. No further choking or coughing was noted for approximately 10 minutes after.
[2019-08-02] VITALS (918 sets, daily range): BP systolic 97–146; BP diastolic 46–75; PULSE 62–69; TEMP 96.9–98.5; O2SAT 63–100
--- NOTE | 2019-08-02 05:00 | NUR ---
Pt was assisted with linen change due to incontinence. External male catheter was placed at this time. Pt denies any discomfort to device.
[2019-08-02 05:17] LABS: BASO % 0.2 % (0.0-2.0); GRAN # 15.1 (1.4-6.5); GRAN % 93.4 % (42.2-75.2); HEMOGLOBIN 11.8 g/dl (13.5-18.0); LYMPH # 0.4 (1.2-3.4); LYMPH % 2.3 % (20.0-51.0); MEAN CELL VOLUME 100 fl (80.0-100.0); MEAN CORPUSCULAR HEMOGLOBIN 32 pg (27.0-31.0); MEAN CORPUSCULAR HGB CONC 32 g/dl (33.0-37.0); MEAN PLATELET VOLUME 12.4 fl (7.4-10.4); MONO # 0.5 (0.1-0.6); MONO % 3.2 % (1.7-9.3); PLATELET COUNT 127 K/mm3 (130-400); REDCELL DISTRIBUTION WIDTH-CV 13.3 % (11.5-14.5)
[2019-08-02 05:26] LABS: CALCIUM 8.9 mg/dL (8.4-10.2); CREATININE, serum 2.04 (0.66-1.25); POTASSIUM 3.5 mmol/L (3.4-5.0)
[2019-08-02 06:07] LABS: ARTERIAL BLD GAS O2 SATURATION 92.8 % (92-100); ARTERIAL BLD GAS TCO2 CT 39.4; ARTERIAL BLOOD GAS HCO3 37.4 meq/L (22-26); ARTERIAL BLOOD GAS PCO2 64.2 mmHg (35-45); ARTERIAL BLOOD GAS pH 7.38 (7.35-7.45)
--- NOTE | 2019-08-02 06:15 | NUR ---
Bedside assistance provided to patient with request for water. Pt was encouraged to drink with out a straw in a high fowlers position. Verbal education was provided on aspiration, coughing is a sign of continued aspiration and if continues than pneumonia will continue to get worse. Pt was provided with verbal cueing to drink slow with small sips of water and did well, no coughing, for the first couple of drinks. Pt coughed the last drink that was provided. Pt does not present with a strong cough.
--- NOTE | 2019-08-02 07:15 | NUR ---
Bedside report provided to Christi SALDIVAR. Pt resting in bed with the television on and RT at bedside with breathing treatment.
--- NOTE | 2019-08-02 10:31 | NUR ---
Vancomycin Follow-up Pharmacy Note Current regimen: VANC BY LEVEL Vancomycin trough: 10.2 Adjustments: RENAL FUNCTION UNCHANGED; VANCOMYCIN 1.5G Q24H
[2019-08-03] VITALS (1117 sets, daily range): BP systolic 104–144; BP diastolic 51–69; PULSE 53–66; TEMP 97.3–98.4; O2SAT 70–100
--- NOTE | 2019-08-03 00:30 | NUR ---
LIBERTY CATHETER CAHNGED.
[2019-08-03 06:46] LABS: HEMOGLOBIN 11.3 g/dl (13.5-18.0); MEAN CELL VOLUME 101 fl (80.0-100.0); MEAN CORPUSCULAR HEMOGLOBIN 31 pg (27.0-31.0); MEAN CORPUSCULAR HGB CONC 31 g/dl (33.0-37.0); MEAN PLATELET VOLUME 12.4 fl (7.4-10.4); PLATELET COUNT 113 K/mm3 (130-400); RED BLOOD COUNT 3.61 M/mm3 (4.20-5.60); REDCELL DISTRIBUTION WIDTH-CV 13.2 % (11.5-14.5)
[2019-08-03 06:51] LABS: HEMATOCRIT 36.4 % (42.0-52.0)
[2019-08-03 07:11] LABS: CALCIUM 8.5 mg/dL (8.4-10.2); CREATININE, serum 2.07 (0.66-1.25); MAGNESIUM 2.7 mg/dL (1.6-2.3); POTASSIUM 3.6 mmol/L (3.4-5.0)
[2019-08-03 10:58] LABS: LYMPHOCYTE 2 % (20.0-51.0); NEUTROPHILS 97 % (42.0-75.2)
[2019-08-03 10:59] LABS: PLATELET ESTIMATE NORMAL (NORMAL)
--- NOTE | 2019-08-03 13:05 | NUR ---
ornamental iron worker apprentice faxed medical updates including facesheet, nursing notes, progress notes, and medications to [facility] ([phone]).
--- NOTE | 2019-08-03 15:00 | NUR ---
Pt very weak and unable to bear much weight. Pt was max assist of two with gait belt to get PT to and from chair. Pt states they use a lift [facility]. PT/OT ordered on pt.
--- NOTE | 2019-08-03 19:10 | NUR ---
Bedside report received from YARIEL Barraza
--- NOTE | 2019-08-03 20:00 | NUR ---
Patient awake and watching TV at this time. No complaints of pain or signs of distress. Patient answers all orientation questions correctly. Assessment complete. HR and rhythm are regular with normal S1 and S2 heard. Lungs are clear bilaterally in upper lobed with coarse and diminished bases. Bowel sounds active x4. Peripheral pulses palpable in all extremities. Patient has +2 pitting edema to the lower extemities. Vitals are WNL. Patient has no current needs at this time. Will continue to monitor. Call light within reach.
--- NOTE | 2019-08-03 20:45 | NUR ---
Patient given oral medications at this time with thickened water. Previous nurse stated that patient was not swallowing well with thin liquids and would cough after swallowing. Patient raised to 90 degrees and tucks his chin when swallowing. Patient did well with the first pill and did not cough, second pill there was coughing after swallowing. Patient did not want anymore water after that. Will continue to monitor.
[2019-08-04] VITALS (320 sets, daily range): BP systolic 100–144; BP diastolic 52–73; PULSE 53–62; TEMP 97.1–97.9; O2SAT 75–100
--- NOTE | 2019-08-04 | NUR ---
Patient sleeping at this time, awakens to tactile stimulation and speech. Patient is confused at first, but is more oriented the longer he stays awake. Vitals obtained and remain stable. No complaints of pain. Will continue to monitor. Call light within reach.
--- NOTE | 2019-08-04 00:54 | NUR ---
Report given to YARIEL Bloom. Transfer of care at this time.
--- NOTE | 2019-08-04 01:00 | NUR ---
RECEIVED REPORT FROM ANDREW SALDIVAR. PT RESTING COMFORTABLY AT THIS TIME
--- NOTE | 2019-08-04 01:30 | NUR ---
PT REQUEST TO TAKE A BREAK FROM BIPAP AND WATCH SOME TV. PLACE ON NC @2LPM. TOLERATING WELL.
--- NOTE | 2019-08-04 04:15 | NUR ---
PT RESTING AT THIS TIME. PLACED BACK ON BIPAP AT 35%FIO2. DENIES PAIN UPON AWAKENING.
--- NOTE | 2019-08-04 07:00 | NUR ---
Bedside shift report received from YARIEL Bloom. Patient is lying in bed on BiPAP with no complaints or concerns at this time. Full assessment completed. Vital signs stable. Bed in lowest position. Side rails up x3. Call light placed within reach. YARIEL Bloom places patient on nasal cannula at this time to take morning medications. Patient tolerates well.
--- NOTE | 2019-08-04 07:15 | NUR ---
Gave bedside report to Kathe SALDIVAR. Pt reports pain is "much better".
[2019-08-04 07:47] LABS: HEMATOCRIT 37.3 % (42.0-52.0); HEMOGLOBIN 11.6 g/dl (13.5-18.0); MEAN CELL VOLUME 101 fl (80.0-100.0); MEAN CORPUSCULAR HEMOGLOBIN 31 pg (27.0-31.0); MEAN CORPUSCULAR HGB CONC 31 g/dl (33.0-37.0); PLATELET COUNT 113 K/mm3 (130-400); RED BLOOD COUNT 3.71 M/mm3 (4.20-5.60); REDCELL DISTRIBUTION WIDTH-CV 13.2 % (11.5-14.5)
[2019-08-04 07:59] LABS: CALCIUM 8.7 mg/dL (8.4-10.2); CREATININE, serum 2.1 (0.66-1.25); POTASSIUM 3.9 mmol/L (3.4-5.0)
--- NOTE | 2019-08-04 08:31 | NUR ---
Morning medications given to patient. Patient tolerated all pills well with thin liquids (water) except for last pill given which was a Flomax capsule. Patient immediately started coughing and oxygen saturations dipped into the high 70's. After about a minute the patient was able to clear airway and have a productive cough. Patient states he feels better at this time. Respiratory therapy and speech therapy at bedside during episode. Speech therapy to feed patient breakfast and assess swallow status. Patient oxygen saturation returns to 93-94% within 5 minutes of episode. Patient has no complaints or concerns at this time. All vital signs are stable. Bed in lowest position. Side rails up x3. Call light within reach.
[2019-08-04 09:23] LABS: BAND 2 % (0-10); LYMPHOCYTE 1 % (20.0-51.0); METAMYELOCYTE 2 % (0-0); NEUTROPHILS 94 % (42.0-75.2)
[2019-08-04 09:26] LABS: HYPOCHROMIA 1+; PLATELET ESTIMATE NORMAL (NORMAL)
--- NOTE | 2019-08-04 11:30 | NUR ---
Preetih from [facility] called for nurse to nurse report. At this time they are unaware of admit and will call back for report once they have more information on the patient.
--- NOTE | 2019-08-04 12:37 | NUR ---
[facility] at bedside to transfer patient to [facility] in [place]. Patient is awake, alert, and vital signs stable. Patient transferred to EMS stretcher by 2 EMS and 1 RN with no complications. Patient remains on 2L oxygen via nasal cannula. Patient's chart and all personal belongings given to EMS to transfer. Patient has no complaints or concerns at this time.
--- NOTE | 2019-08-04 12:42 | NUR ---
Nurse to nurse report called to Rogerio at [facility] at this time. Call back number given to RN.
--- NOTE | 2019-08-04 14:38 | NUR ---
Health Data Administrator was notified that Gear Straightener is recommending LTAC upon discharge. YESSY met with patient and presented patient choice form. Patient selected [facility] [place] and provided signature. YESSY placed form in chart. YESSY contacted patient's brother, Augusto who is in agreeance. YESSY provided referral to Amador at [facility]. After reviewing referral and evaluating patient, [facility]ador advised they could accept today. YESSY contacted [facility] and set up EMS transport for 1:00pm. EYSSY provided update to patient RN, patient's brother Augusto, and Kindra at [facility]. Patient will discharge today to [facility] at 1:00pm. No additional concerns at this time.
== END 2019-08-04 12:37 | DRG 177 ==
LOC: COL.ER 12:39 → MEDICAL 14:20 → ICU 14:20 → MEDICAL 14:20 → ICU 08-01 00:53 → MEDICAL 08-01 00:53 → ICU 08-01 00:53
PROVIDERS: Emergency Medicine; Internal Medicine Pulmonary Disease; Nurse Practitioner Family; Student in an Organized Health Care Education/Training Program; ADMIT Internal Medicine
PROC: 02HV33Z Insertion of Infusion Device into Superior Vena Cava, Percutaneous Approach (ICD-10-PCS; principal; 2019-08-01)
DX: J69.0 Pneumonitis due to inhalation of food and vomit (principal); J96.21 Acute and chronic respiratory failure with hypoxia; I50.33 Acute on chronic diastolic (congestive) heart failure; J96.22 Acute and chronic respiratory failure with hypercapnia; J44.1 Chronic obstructive pulmonary disease with (acute) exacerbation; N17.9 Acute kidney failure, unspecified; K57.92 Diverticulitis of intestine, part unspecified, without perforation or abscess without bleeding; I11.0 Hypertensive heart disease with heart failure; E11.65 Type 2 diabetes mellitus with hyperglycemia; D72.829 Elevated white blood cell count, unspecified; N40.0 Benign prostatic hyperplasia without lower urinary tract symptoms; E78.5 Hyperlipidemia, unspecified; R53.81 Other malaise; Z79.82 Long term (current) use of aspirin; Z79.4 Long term (current) use of insulin; Z87.891 Personal history of nicotine dependence
CPT/HCPCS: 99223-AI; 99233-AI; 99239; A9284; C1751; J0456; J1644; J1815; J1940; J2543; J2920; J2930; J3370; J3475; J7030; J7040; J7050; J7512